=== PATIENT | female | born 1955 | race Asian ===

== ENCOUNTER 2017-08-16 18:56 | Emergency (ER) | payer OTHER ==
[2017-08-16] MEDS ORDERED: Morphine 10 MG/ML VIAL ONE (19:31)
[2017-08-16] MEDS ORDERED: Ketorolac Tromethamine 30 MG/ML VIAL ONE (19:32)
[2017-08-16] MEDS ORDERED: Ondansetron HCl/PF 4 MG/2 ML Vial ONE (19:32)
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
[2017-08-16] MEDS ORDERED: MORPHINE 10 MG/ML SYRINGE ONE (22:27)
== END 2017-08-16 23:45 | disposition short-term general hospital (02) ==
LOC: MADERS 18:56
DX: S32.021A Stable burst fracture of second lumbar vertebra, initial encounter for closed fracture (principal); I10 Essential (primary) hypertension; Z79.899 Other long term (current) drug therapy; V89.2XXA Person injured in unspecified motor-vehicle accident, traffic, initial encounter; W22.11XA Striking against or struck by driver side automobile airbag, initial encounter
CPT/HCPCS: 51702; 70450; 72125; 72131; 96374; 96375; 96376; G0390; J1885; J2270; J2405